=== PATIENT | female | born 1965 | race Caucasian/White ===

== ENCOUNTER 2016-10-12 14:43 | Emergency (ER) | payer OTHER ==
[~2016-10-12] VITALS: Ht 160 cm; Wt 49.3 kg
[~2016-10-12 14:43] MED LIST: ALLEGRA180 MG PO; ALPRAZOLAM0.5 MG PO; AMLODIPINE BESYL5 MG PO; ASPIR-LOW81 MG PO; ASPIRIN325 MG PO; ATORVASTATIN CA20 MG PO; AZITHROMYCIN250 MG PO; BACLOFEN10 MG PO; BENADRYL25 MG PO; BENTYL20 MG PO; BUSPAR7.5 MG PO; BUTALB-APAP-CA1 EACH PO; CAMPRAL333 MG PO; CELEXA10 MG PO; CITALOPRAM HBR10 MG PO; CLOPIDOGREL75 MG PO; Ceftin PO; DIAZEPAM5 MG PO; EC-NAPROSYN500 MG PO; Ecotrin PO; FEXOFENADINE H180 MG PO; FLAGYL500 MG PO; FLONASE16 G1 BOTH NARES; FLOVENT DISKUS1 DIS2 IH; FLOVENT DISKUS1 DIS2 NS; FLUTICASONE PO; GUAIFENESIN AC473 ML PO; KETOCONAZOLE120 ML TP; KETOCONAZOLE200 MG PO; Keppra PO; LEVETIRACETAM750 MG PO; LIPITOR20 MG PO; LOMOTIL TABLET1 EACH PO; MOBIC15 MG PO; NAPROSYN500 MG PO; NAPROXEN500 MG PO; NICOTINE PATCH1 EAC2 TD; NIX 5% CREAM60 GM TP; NORVASC10 MG PO; NORVASC2.5 MG PO; OXAPROZIN600 MG PO; PANTOPRAZOLE SO40 MG PO; PLAVIX75 MG PO; PREDNISONE10 MG PO; PROAIR HFA8.5 GM IH; Plavix PO; Protonix PO; SELENIUM SULFI118 ML TP; TEGRETOL200 MG PO; TEMAZEPAM15 MG PO; TRAMADOL HCL50 MG PO; TYLENOL WITH C1 EACH PO; ULTRAM50 MG PO; Ultram PO; VITAMIN D34000 UNIT PO; ZANTAC150 MG PO; ZOFRAN4 MG PO; ZOLPIDEM TARTRA10 MG PO; ZOLPIDEM TARTRAT5 MG PO
[2016-10-12 14:55] VITALS: BP 139/85
[2016-10-12] MEDS ORDERED: NAPROXEN500 MG PO (18:06)
== END 2016-10-12 18:24 | disposition home or self-care (01) ==
LOC: EME 14:43
DX: S93.401A Sprain of unspecified ligament of right ankle, initial encounter (principal); M79.89 Other specified soft tissue disorders; Z88.2 Allergy status to sulfonamides
CPT/HCPCS: 73610; 93971; 99281; 99283

== ENCOUNTER 2016-10-28 17:20 | Observation (INO) | payer OTHER ==
[~2016-10-28] VITALS: Ht 160 cm; Wt 49.6 kg
[2016-10-28] MEDS ORDERED: AMBIEN10 MG PO (18:25)
[2016-10-28 19:02] LABS: HEMATOCRIT 33.2 % (36.0-46.0); MCH 28.3 PG (29.0-34.0); MCHC 32.5 G/DL (30.0-36.0); MCV 86.9 FL (83-99); MEAN PLAT.VOLUME 9.9 uM^3 (9.5-12.4); PLATELET COUNT 389 K/uL (156-360); RBC DIS.WIDTH-CV 17.9 % (11.8-14.6); RBC DIS.WIDTH-SD 55.4 % (39-53); RED BLOOD COUNT 3.82 M/uL (3.80-5.20); WHITE BLOOD COUNT 12.2 K/uL (4.1-10.2)
[2016-10-28 19:18] LABS: D-DIMER ELISA 2.89 mg/L FEU (< 0.57)
[2016-10-28 19:19] LABS: CHLORIDE 104 mEq/L (99-109); POTASSIUM 3.3 mEq/L (3.7-5.4); SODIUM 139 mEq/L (136-147)
[2016-10-28 19:21] LABS: GLUCOSE 97 mg/dL (70-99)
[2016-10-28 19:22] LABS: ANION GAP 15 MEQ/L (2-14)
[2016-10-28 19:25] LABS: GFR ESTIMATE (CALCULATED) > 59 mL/min/
[2016-10-28 19:26] LABS: UREA NITROGEN (BUN) 29 mg/dL (9-23)
[2016-10-28 19:33] LABS: QUANTITATIVE HCG 4.4 MIU/ML; TROP-I INTERPRETATION NEGATIVE; TROPONIN-I 0.02 ng/mL (0.0-0.30)
[2016-10-28] MEDS ORDERED: RESTORIL15 MG PO (22:18)
[2016-10-28] MEDS ORDERED: VITAMIN D-3 401 EACH PO (22:21)
[2016-10-28] MEDS ORDERED: MEGACE40 MG PO (22:22)
[2016-10-28] MEDS ORDERED: ALLEGRA ALLERG180 MG PO (22:22)
[2016-10-28] MEDS ORDERED: NORVASC5 MG PO (22:22)
[2016-10-29 00:39] VITALS: BP 133/74
[2016-10-29 02:07] LABS: TROP-I INTERPRETATION NEGATIVE; TROPONIN-I < 0.01 ng/mL (0.0-0.30)
[2016-10-29 03:46] VITALS: BP 104/60
[2016-10-29 07:54] VITALS: BP 144/67
[2016-10-29 08:16] LABS: C DIFF TOXIN NEGATIVE (NEGATIVE); PROBE CHECK PASS; SPECIMEN PROCESSING CONTROL PASS
[2016-10-29 09:43] LABS: TROP-I INTERPRETATION NEGATIVE; TROPONIN-I < 0.01 ng/mL (0.0-0.30)
[2016-10-29 11:54] VITALS: BP 140/80
[2016-10-29 17:21] LABS: TROP-I INTERPRETATION NEGATIVE; TROPONIN-I < 0.01 ng/mL (0.0-0.30)
[2016-10-29] MEDS ORDERED: ZITHROMAX250 MG PO (20:26)
== END 2016-10-29 21:10 | disposition home or self-care (01) ==
LOC: EME 17:20 → EDOF 22:19 → 5WEST 22:19 → EDOF 22:19 → 5WEST 10-29 00:27
PROVIDERS: Internal Medicine; Physician Assistant
DX: R07.89 Other chest pain (principal); I10 Essential (primary) hypertension; R64 Cachexia; Z68.1 Body mass index [BMI] 19.9 or less, adult; Z86.73 Personal history of transient ischemic attack (TIA), and cerebral infarction without residual deficits; G40.909 Epilepsy, unspecified, not intractable, without status epilepticus; F41.9 Anxiety disorder, unspecified; F32.9 Major depressive disorder, single episode, unspecified; F10.21 Alcohol dependence, in remission; F17.200 Nicotine dependence, unspecified, uncomplicated
CPT/HCPCS: 71020; 71275; 73610; 80048; 84439; 84443; 84484; 84702; 85027; 85379; 87493; 87651 90; 93005; 99281; 99283; G0378; J1650; J7030

== ENCOUNTER 2017-08-14 12:51 | Emergency (ER) | payer OTHER ==
[~2017-08-14] VITALS: Ht 160 cm; Wt 47.9 kg
[~2017-08-14 12:51] MED LIST changes: +ALLEGRA ALLERG180 MG PO; +AMBIEN10 MG PO; +MEGACE40 MG PO; +NORVASC5 MG PO; +RESTORIL15 MG PO; +VITAMIN D-3 401 EACH PO; +ZITHROMAX250 MG PO
[2017-08-14 13:28] LABS: BASOPHIL COUNT 0.1 K/uL (0-0.1); EOSINOPHIL (%) 1.2 % (0-5); EOSINOPHIL COUNT 0.1 K/uL (0-0.3); HEMATOCRIT 41.3 % (36.0-46.0); IMMATURE GRANULOCYTE (%) 0.4 % (0.0-0.7); INSTRUMENT ABS NEUTROPHIL CT 4.7 K/uL; LYMPHOCYTE COUNT 2.6 K/uL (1.0-2.8); MCH 31.9 PG (29.0-34.0); MCHC 33.4 G/DL (30.0-36.0); MCV 95.6 FL (83-99); MONOCYTE (%) 9.5 % (3-12); MONOCYTE COUNT 0.8 K/uL (0-0.8); NEUTROPHIL (%) 56.6 % (45-76); NEUTROPHIL COUNT 4.7 K/uL (1.8-6.4); PLATELET COUNT 277 K/uL (156-360); RBC DIS.WIDTH-CV 14.9 % (11.8-14.6); RBC DIS.WIDTH-SD 53.1 % (39-53); RED BLOOD COUNT 4.32 M/uL (3.80-5.20); WHITE BLOOD COUNT 8.3 K/uL (4.1-10.2)
[2017-08-14 13:42] LABS: CHLORIDE 103 mEq/L (99-109); POTASSIUM 3.3 mEq/L (3.7-5.4); SODIUM 140 mEq/L (136-147)
[2017-08-14 13:44] LABS: GLUCOSE 96 mg/dL (70-99)
[2017-08-14 13:45] LABS: ANION GAP 16 MEQ/L (2-14)
[2017-08-14 13:48] LABS: GFR ESTIMATE (CALCULATED) 55 mL/min/
[2017-08-14 13:49] LABS: TROP-I INTERPRETATION NEGATIVE; TROPONIN-I < 0.01 ng/mL (0.0-0.30); UREA NITROGEN (BUN) 12 mg/dL (9-23)
[2017-08-14] MEDS ORDERED: NORCO 5/3251 TABLET PO (15:13)
[2017-08-14] MEDS ORDERED: PREDNISONE20 MG PO (15:13)
[2017-08-14 15:40] VITALS: BP 128/86
== END 2017-08-14 15:49 | disposition home or self-care (01) ==
LOC: EME 12:51
PROVIDERS: Emergency Medicine
DX: R07.9 Chest pain, unspecified (principal); I10 Essential (primary) hypertension; F17.200 Nicotine dependence, unspecified, uncomplicated; J45.909 Unspecified asthma, uncomplicated; Z86.73 Personal history of transient ischemic attack (TIA), and cerebral infarction without residual deficits; Z86.79 Personal history of other diseases of the circulatory system; R56.9 Unspecified convulsions; F32.9 Major depressive disorder, single episode, unspecified
CPT/HCPCS: 71010; 80048; 84484; 85025; 93005; 99281; 99284; J3010

== ENCOUNTER 2017-08-26 17:33 | Emergency (ER) | payer OTHER ==
[~2017-08-26] VITALS: Ht 160 cm; Wt 45.1 kg
[~2017-08-26 17:33] MED LIST changes: +NORCO 5/3251 TABLET PO; +PREDNISONE20 MG PO
[2017-08-26] MEDS ORDERED: VITAMIN D400 UNIT PO (18:20)
[2017-08-26] MEDS ORDERED: MICRO-K10 ME2 PO (18:20)
[2017-08-26] MEDS ORDERED: RESTORIL15 MG PO (18:20)
[2017-08-26] MEDS ORDERED: VIBERZI75 MG PO (18:21)
[2017-08-26] MEDS ORDERED: BYSTOLIC5 MG PO (18:21)
[2017-08-26] MEDS ORDERED: DAYPRO600 MG PO (18:21)
[2017-08-26 18:22] LABS: MCH 32.1 PG (29.0-34.0); MCV 91.6 FL (83-99); MEAN PLAT.VOLUME 9.4 uM^3 (9.5-12.4); PLATELET COUNT 312 K/uL (156-360); RBC DIS.WIDTH-CV 14.6 % (11.8-14.6); RBC DIS.WIDTH-SD 49.3 % (39-53); RED BLOOD COUNT 3.93 M/uL (3.80-5.20); WHITE BLOOD COUNT 8.8 K/uL (4.1-10.2)
[2017-08-26 18:26] LABS: CHLORIDE 99 mEq/L (99-109); POTASSIUM 3.5 mEq/L (3.7-5.4); SODIUM 134 mEq/L (136-147)
[2017-08-26 18:28] LABS: GLUCOSE 101 mg/dL (70-99)
[2017-08-26 18:29] LABS: ANION GAP 15 MEQ/L (2-14)
[2017-08-26 18:31] LABS: GFR ESTIMATE (CALCULATED) > 59 mL/min/
[2017-08-26 18:32] LABS: UREA NITROGEN (BUN) 8 mg/dL (9-23)
[2017-08-26 18:37] LABS: TROP-I INTERPRETATION NEGATIVE; TROPONIN-I < 0.01 ng/mL (0.0-0.30)
[2017-08-26 18:43] LABS: ADD MIUA? YES; BILIRUBIN NEGATIVE; BLOOD NEGATIVE; COLOR STRAW ((YELLOW)); GLUCOSE (STRIP) NEGATIVE; KETONES 20; LEUKOCYTES TRACE; NITRITE NEGATIVE; PROTEIN (STRIP) NEGATIVE; SPECIFIC GRAVITY 1.004 (1.000-1.030); UROBILINOGEN 0.2 MG/DL (0.2-1.0)
[2017-08-26 18:50] LABS: ALKALINE PHOSPHATASE 39 IU/L (3-129); TOTAL BILIRUBIN 0.3 mg/dL (0.0-1.0)
[2017-08-26 18:54] LABS: LIPASE 51 U/L (1.0-51.0)
[2017-08-26 19:01] LABS: BACTERIA 2+ /HPF; EPITHELIAL CELLS 1+ /HPF; MUCUS TRACE /LPF; RED BLOOD CELLS 0-5 /HPF (0-5); UCUL ADDED? YES; WHITE BLOOD CELLS 0-5 /HPF (0-5)
[2017-08-26] MEDS ORDERED: FLAGYL500 MG PO (21:57)
[2017-08-26] MEDS ORDERED: ZOFRAN4 MG PO (21:57)
[2017-08-26] MEDS ORDERED: CIPRO500 MG PO (21:57)
[2017-08-26 22:16] VITALS: BP 126/77
== END 2017-08-26 22:20 | disposition home or self-care (01) ==
LOC: EME 17:33
PROVIDERS: Emergency Medicine
DX: B34.9 Viral infection, unspecified (principal); R10.13 Epigastric pain; J45.909 Unspecified asthma, uncomplicated; I10 Essential (primary) hypertension; F17.200 Nicotine dependence, unspecified, uncomplicated; F32.9 Major depressive disorder, single episode, unspecified; R56.9 Unspecified convulsions; Z86.73 Personal history of transient ischemic attack (TIA), and cerebral infarction without residual deficits; Z88.2 Allergy status to sulfonamides
CPT/HCPCS: 71020; 74177; 80048; 80053; 81003; 83690; 84484; 85027; 87077; 87086 GA; 87186; 93005; 99281; 99285; J2405

== ENCOUNTER 2017-09-08 10:17 | Inpatient (IN) | payer OTHER ==
[~2017-09-08] VITALS: Ht 160 cm; Wt 44.6 kg
[~2017-09-08 10:17] MED LIST changes: +BYSTOLIC5 MG PO; +CIPRO500 MG PO; +DAYPRO600 MG PO; +MICRO-K10 ME2 PO; +VIBERZI75 MG PO; +VITAMIN D400 UNIT PO
[2017-09-08 11:10] LABS: ADD MIUA? YES; BILIRUBIN NEGATIVE; BLOOD NEGATIVE; COLOR YELLOW ((YELLOW)); GLUCOSE (STRIP) NEGATIVE; KETONES 20; LEUKOCYTES SMALL; NITRITE NEGATIVE; PROTEIN (STRIP) 30; SPECIFIC GRAVITY 1.015 (1.000-1.030); UROBILINOGEN 0.2 MG/DL (0.2-1.0)
[2017-09-08 11:14] LABS: BACTERIA 3+ /HPF; EPITHELIAL CELLS 1+ /HPF; MUCUS 1+ /LPF; RED BLOOD CELLS 0-5 /HPF (0-5); UCUL ADDED? YES
[2017-09-08 11:20] LABS: HEMATOCRIT 42.8 % (36.0-46.0); MCH 32.1 PG (29.0-34.0); MCHC 34.6 G/DL (30.0-36.0); MCV 92.8 FL (83-99); MEAN PLAT.VOLUME 10.1 uM^3 (9.5-12.4); PLATELET COUNT 385 K/uL (156-360); RBC DIS.WIDTH-CV 14.6 % (11.8-14.6); RBC DIS.WIDTH-SD 50.1 % (39-53); RED BLOOD COUNT 4.61 M/uL (3.80-5.20); WHITE BLOOD COUNT 6.6 K/uL (4.1-10.2)
[2017-09-08 11:30] LABS: CHLORIDE 100 mEq/L (99-109); SODIUM 136 mEq/L (136-147)
[2017-09-08 11:32] LABS: GLUCOSE 109 mg/dL (70-99)
[2017-09-08 11:33] LABS: ANION GAP 20 MEQ/L (2-14)
[2017-09-08 11:34] LABS: TOTAL BILIRUBIN 0.3 mg/dL (0.0-1.0)
[2017-09-08 11:35] LABS: ALKALINE PHOSPHATASE 43 IU/L (3-129)
[2017-09-08 11:36] LABS: GFR ESTIMATE (CALCULATED) > 59 mL/min/
[2017-09-08 11:37] LABS: UREA NITROGEN (BUN) 6 mg/dL (9-23)
[2017-09-08 11:39] LABS: LIPASE 58 U/L (1.0-51.0)
[2017-09-08 11:45] LABS: QUANTITATIVE HCG < 4.0 MIU/ML
[2017-09-08] MEDS ORDERED: ZOLPIDEM TARTRA10 MG PO (21:00)
[2017-09-09] VITALS (7 sets, daily range): BP systolic 105–158; BP diastolic 60–86
[2017-09-09 04:12] LABS: C DIFF TOXIN NEGATIVE (NEGATIVE)
[2017-09-09 04:13] LABS: PROBE CHECK PASS; SPECIMEN PROCESSING CONTROL PASS
[2017-09-09 06:35] LABS: HEMATOCRIT 36.3 % (36.0-46.0); MCH 30.9 PG (29.0-34.0); MCHC 33.6 G/DL (30.0-36.0); MCV 91.9 FL (83-99); MEAN PLAT.VOLUME 9.7 uM^3 (9.5-12.4); PLATELET COUNT 328 K/uL (156-360); RBC DIS.WIDTH-CV 14.3 % (11.8-14.6); RBC DIS.WIDTH-SD 48.6 % (39-53); RED BLOOD COUNT 3.95 M/uL (3.80-5.20)
[2017-09-09 06:44] LABS: ALKALINE PHOSPHATASE 30 IU/L (3-129); ANION GAP 10 MEQ/L (2-14); ANION GAP 8 MEQ/L (2-14); CHLORIDE 102 MEQ/L (99-109); CHLORIDE 103 MEQ/L (99-109); GFR ESTIMATE (CALCULATED) > 59 mL/min/; GLUCOSE 103 mg/dL (70-99); GLUCOSE 109 mg/dL (70-99); POTASSIUM 3.6 MEQ/L (3.7-5.4); POTASSIUM 3.8 MEQ/L (3.7-5.4); SAMPLE HEMOLYSIS CHECK 0; SAMPLE ICTERIC CHECK 0; SAMPLE LIPEMIA CHECK 0; SODIUM 135 MEQ/L (136-147); SODIUM 137 MEQ/L (136-147); TOTAL BILIRUBIN 0.3 MG/DL (0.0-1.0); UREA NITROGEN (BUN) 3 mg/dL (9-23)
[2017-09-10 08:03] VITALS: BP 115/69
[2017-09-10 15:56] VITALS: BP 111/64
[2017-09-11] VITALS: BP 108/59
[2017-09-11 08:12] VITALS: BP 107/56
[2017-09-11 16:22] VITALS: BP 104/57
[2017-09-12 00:06] VITALS: BP 105/54
[2017-09-12 08:03] VITALS: BP 121/98
== END 2017-09-12 10:55 | disposition home or self-care (01) | DRG 392 ==
LOC: EME 10:17 → 3EAST 21:40 → EDOF 21:40 → ENRESERV 21:48 → 3EAST 09-09 00:03
PROVIDERS: Family Medicine
PROC: 0DJ08ZZ Inspection of Upper Intestinal Tract, Via Natural or Artificial Opening Endoscopic (ICD-10-PCS; principal; 2017-09-11)
DX: K52.9 Noninfective gastroenteritis and colitis, unspecified (principal); I69.351 Hemiplegia and hemiparesis following cerebral infarction affecting right dominant side; G40.909 Epilepsy, unspecified, not intractable, without status epilepticus; I10 Essential (primary) hypertension; E78.5 Hyperlipidemia, unspecified; K21.9 Gastro-esophageal reflux disease without esophagitis; F32.9 Major depressive disorder, single episode, unspecified; F17.210 Nicotine dependence, cigarettes, uncomplicated; G47.00 Insomnia, unspecified; I73.9 Peripheral vascular disease, unspecified; S30.0XXA Contusion of lower back and pelvis, initial encounter; S40.011A Contusion of right shoulder, initial encounter; W01.198A Fall on same level from slipping, tripping and stumbling with subsequent striking against other object, initial encounter; J45.909 Unspecified asthma, uncomplicated
CPT/HCPCS: 70470; 74177; 80048; 80053; 81003; 83690; 84702; 85027; 87086; 87493; 87506; 90686; 99281; 99285; C9113; J0295; J0744; J2405; J7030; J7042; J7050; S0030

== ENCOUNTER 2017-09-28 09:37 | Emergency (ER) | payer OTHER ==
[~2017-09-28] VITALS: Ht 160 cm; Wt 44.4 kg
[2017-09-28 10:55] LABS: BASOPHIL COUNT 0.1 K/uL (0-0.1); EOSINOPHIL COUNT 0.1 K/uL (0-0.3); IMMATURE GRANULOCYTE (%) 0.5 % (0.0-0.7); INSTRUMENT ABS NEUTROPHIL CT 4.6 K/uL; LYMPHOCYTE COUNT 2.7 K/uL (1.0-2.8); MCH 31.7 PG (29.0-34.0); MCHC 34.9 G/DL (30.0-36.0); MCV 90.9 FL (83-99); MEAN PLAT.VOLUME 10.9 uM^3 (9.5-12.4); MONOCYTE (%) 7.7 % (3-12); MONOCYTE COUNT 0.6 K/uL (0-0.8); NEUTROPHIL (%) 56.5 % (45-76); NEUTROPHIL COUNT 4.6 K/uL (1.8-6.4); PLATELET COUNT 254 K/uL (156-360); RBC DIS.WIDTH-CV 13.8 % (11.8-14.6); RBC DIS.WIDTH-SD 46.4 % (39-53); RED BLOOD COUNT 4.07 M/uL (3.80-5.20); WHITE BLOOD COUNT 8.1 K/uL (4.1-10.2)
[2017-09-28 11:05] LABS: CHLORIDE 97 mEq/L (99-109); POTASSIUM 3.9 mEq/L (3.7-5.4); SODIUM 135 mEq/L (136-147)
[2017-09-28 11:08] LABS: GLUCOSE 72 mg/dL (70-99)
[2017-09-28 11:09] LABS: ANION GAP 19 MEQ/L (2-14)
[2017-09-28 11:10] LABS: TOTAL BILIRUBIN 0.3 mg/dL (0.0-1.0)
[2017-09-28 11:11] LABS: ALKALINE PHOSPHATASE 44 IU/L (3-129); GFR ESTIMATE (CALCULATED) > 59 mL/min/
[2017-09-28 11:12] LABS: UREA NITROGEN (BUN) 4 mg/dL (9-23)
[2017-09-28 11:15] LABS: ADD MIUA? NO; BILIRUBIN NEGATIVE; BLOOD NEGATIVE; COLOR STRAW ((YELLOW)); GLUCOSE (STRIP) NEGATIVE; KETONES 5; LEUKOCYTES NEGATIVE; NITRITE NEGATIVE; PROTEIN (STRIP) NEGATIVE; SPECIFIC GRAVITY 1.008 (1.000-1.030); UCUL ADDED? NO; UROBILINOGEN 0.2 MG/DL (0.2-1.0)
[2017-09-28 11:15] LABS: LIPASE 25 U/L (1.0-51.0)
[2017-09-28] MEDS ORDERED: ZOFRAN4 MG PO (12:21)
[2017-09-28 13:47] VITALS: BP 147/98
== END 2017-09-28 13:49 | disposition home or self-care (01) ==
LOC: EME → EDBD 09:37 → EME 09:37
PROVIDERS: Emergency Medicine
DX: R11.0 Nausea (principal); R10.9 Unspecified abdominal pain; R20.0 Anesthesia of skin; I10 Essential (primary) hypertension; Z86.73 Personal history of transient ischemic attack (TIA), and cerebral infarction without residual deficits; F17.200 Nicotine dependence, unspecified, uncomplicated
CPT/HCPCS: 70450; 80053; 81003; 83690; 85025; 99281; 99285; J2405; J7030

== ENCOUNTER 2018-05-18 11:39 | Emergency (ER) | payer OTHER ==
[~2018-05-18] VITALS: Ht 160 cm; Wt 39.1 kg
[2018-05-18 12:19] LABS: HEMATOCRIT 29.8 % (36.0-46.0); HEMOGLOBIN 10.2 G/DL (11.9-15.5); MCH 33.7 PG (29.0-34.0); MCHC 34.2 G/DL (30.0-36.0); MCV 98.3 FL (83-99); PLATELET COUNT 258 K/uL (156-360); RBC DIS.WIDTH-CV 16.4 % (11.8-14.6); RED BLOOD COUNT 3.03 M/uL (3.80-5.20); WHITE BLOOD COUNT 7.2 K/uL (4.1-10.2)
[2018-05-18 12:31] LABS: ALBUMIN 3.4 g/dL (3.2-4.8); CHLORIDE 106 mEq/L (99-109); POTASSIUM 4.5 mEq/L (3.7-5.4); SODIUM 141 mEq/L (136-147)
[2018-05-18 12:34] LABS: GLUCOSE 97 mg/dL (70-99); TOTAL PROTEIN 6.1 g/dL (6.4-8.3)
[2018-05-18 12:36] LABS: TOTAL BILIRUBIN 0.2 mg/dL (0.0-1.0)
[2018-05-18 12:37] LABS: ALKALINE PHOSPHATASE 31 IU/L (3-129); GFR ESTIMATE (CALCULATED) > 59 mL/min/
[2018-05-18 12:38] LABS: UREA NITROGEN (BUN) 18 mg/dL (9-23)
[2018-05-18 12:39] LABS: AST (GOT) 25 IU/L (2-34)
[2018-05-18 12:40] LABS: ALT (GPT) 15 IU/L (3-49)
[2018-05-18 15:07] VITALS: BP 103/66
== END 2018-05-18 15:08 | disposition home or self-care (01) ==
LOC: EME 11:39
DX: G62.9 Polyneuropathy, unspecified (principal); I10 Essential (primary) hypertension; J45.909 Unspecified asthma, uncomplicated; F31.9 Bipolar disorder, unspecified; F32.9 Major depressive disorder, single episode, unspecified; F17.200 Nicotine dependence, unspecified, uncomplicated; Z86.73 Personal history of transient ischemic attack (TIA), and cerebral infarction without residual deficits; Z88.2 Allergy status to sulfonamides
CPT/HCPCS: 80053; 85027; 99281; 99284